=== PATIENT | male | born 1995 | race Two or more races ===

== ENCOUNTER 2021-01-28 18:24 | Emergency (ER) | payer OTHER, MEDICAID ==
[~2021-01-28] VITALS: Ht 165.1 cm; Wt 65.7 kg
[2021-01-28 21:58] VITALS: BP 126/82
[2021-01-28] MEDS ORDERED: DEXAMETHASONE 4 MG/ML, 1ML PO ONE (22:00)
[2021-01-28] MEDS ORDERED: DEXAMETHASONE 4 MG TABLET ONE (22:01)
[2021-01-28] MEDS ORDERED: DEXAMETHASONE 4 MG TABLET PO ONE (22:30)
== END 2021-01-28 22:50 | disposition home or self-care (01) ==
LOC: ED 19:00
DX: J02.8 Acute pharyngitis due to other specified organisms (principal); B97.89 Other viral agents as the cause of diseases classified elsewhere; H92.01 Otalgia, right ear; R68.84 Jaw pain
CPT/HCPCS: 87081; 87880; 99283